=== PATIENT | male | born 1970 | race Caucasian/White ===

== ENCOUNTER 2016-08-15 16:41 | Emergency (ER) | payer SELFPAY ==
[~2016-08-15] VITALS: Ht 180.3 cm; Wt 68.0 kg
[2016-08-15 16:50] VITALS: BP 148/98; PULSE 87; RESP 16; TEMP 98.8; O2SAT 100
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
[2016-08-15] MEDS ORDERED: ONDANSETRON ODT 4 MG TAB PO ONE (17:00)
[2016-08-15] MEDS ORDERED: MORPHINE SULFATE 8 MG/ML INJ IM ONE (17:00)
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
--- NOTE | 2016-08-15 18:06 | RADHPO ---
EXAM DATE/TIME: 08/15/2016 17:33 [facility] COMPARISON: No previous studies available for comparison. INDICATIONS : Fall, neck pain. RADIATION DOSE: 26.61 CTDIvol (mGy) MEDICAL HISTORY : None SURGICAL HISTORY : None. ENCOUNTER: Initial ACUITY: 1 day PAIN SCALE: 5/10 LOCATION: neck TECHNIQUE: Volumetric scanning of the cervical spine was performed. Multiplanar reconstructions in the sagittal, coronal and oblique axial planes were performed. Using automated exposure control and adjustment o f the mA and/or kV according to patient size, radiation dose was kept as low as reasonably achievable to obtain optimal diagnostic quality images. FINDINGS: The soft tissues are normal. Bony structures are intact with fusion at C5-6 and no evidence of fractu re, compression, subluxation, or destructive change. Odontoid is normal relationship the arch C1. Sco liosis of cervical spine to the right is appreciated with multilevel degenerative disc disease and ch anges particularly C3-4 osteophyte disc complex central and to the right with mild lateral recess enc roachment and moderate osteophyte disc protrusion C4-5 with left neural foraminal encroachment. CONCLUSION: Degenerative findings as described above. No acute bony injury Gerry Mcleod MD on August 15, 2016 at 17:59 Board Certified Radiologist. This report was verified electronically.
[2016-08-15] MEDS ORDERED: PERC5TAB12 PO (18:14)
[2016-08-15] MEDS ORDERED: PROM25TA5 PO (18:14)
== END 2016-08-15 18:24 | disposition home or self-care (01) ==
LOC: PHED 16:41
DX: S00.03XA Contusion of scalp, initial encounter (principal); V86.39XA Unspecified occupant of other special all-terrain or other off-road motor vehicle injured in traffic accident, initial encounter; Y93.I9 Activity, other involving external motion; Y92.9 Unspecified place or not applicable
CPT/HCPCS: 70450; 72125; 96372; 99283; J2270

== ENCOUNTER 2017-09-01 11:21 | Emergency (ER) | payer MEDICAID, OTHER ==
[~2017-09-01] VITALS: Ht 180.3 cm; Wt 70.5 kg
[~2017-09-01 11:21] MED LIST: PERC5TAB12 PO; PROM25TA5 PO
[2017-09-01 11:27] VITALS: BP 137/91; PULSE 93; RESP 16; TEMP 98.3; O2SAT 98
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
[2017-09-01] MEDS ORDERED: SODIUM CHLORID 0.9% 500 ML INJ 500 ML IV ONE (13:15)
[2017-09-01] MEDS ORDERED: MORPHINE SULFATE 4 MG/ML INJ IV PUSH ONE (13:15)
[2017-09-01] MEDS ORDERED: ONDANSETRON HCL 4 MG/2 ML VIAL IV PUSH ONE (13:15)
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
[2017-09-01 13:39] LABS: BILIRUBIN, URINE NEG (NEG); BLOOD, URINE NEG (NEG); GLUCOSE,URINE NEG (NEG); KETONE, URINE NEG (NEG); MUCUS URINE FEW /lpf (OCC); NITRITE,URINE NEG (NEG); SQUAMOUS EPITHELIAL CELL URINE <1 /hpf (0-5); URINE COLOR DARK-YELLOW (YELLW/STRAW); URINE LEUKOCYTE ESTERASE NEG (NEG)
[2017-09-01 13:50] LABS: AUTOMATED NEUTROPHIL # 4.4 TH/MM3 (1.8-7.7); BASOPHIL % 0.5 % (0.0-2.0); EOSINOPHIL # 0.1 TH/MM3 (0-0.4); EOSINOPHIL % 1.9 % (0.0-4.0); HEMOGLOBIN 13.5 GM/DL (13.0-17.0); LYMPHOCYTE # 1.5 TH/MM3 (1.0-4.8); MEAN CELL VOLUME 91.7 FL (80.0-100.0); MEAN CORPUSCULAR HEMOGLOBIN 31.8 PG (27.0-34.0); MEAN CORPUSCULAR HGB CONC 34.7 % (32.0-36.0); MEAN PLATELET VOLUME 8.2 FL (7.0-11.0); MONO % 8.1 % (0.0-8.0); MONOCYTE # 0.5 TH/MM3 (0-0.9); NEUT % 66.5 % (16.0-70.0); PLATELET COUNT 309 TH/MM3 (150-450); RED BLOOD COUNT 4.25 MIL/MM3 (4.50-5.90); RED CELL DISTRIBUTION WIDTH 12.5 % (11.6-17.2); WHITE BLOOD COUNT 6.5 TH/MM3 (4.0-11.0)
[2017-09-01 14:04] LABS: BICARBONATE 31.4 MEQ/L (21.0-32.0); CALCIUM 9.3 MG/DL (8.5-10.1); CREATININE 0.79 MG/DL (0.60-1.30)
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
[2017-09-01] MEDS ORDERED: LORazepam 2 MG/ML VIAL ONE (14:11)
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
[2017-09-01] MEDS ORDERED: LORazepam 2 MG/ML VIAL IV PUSH ONE (14:15)
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
[2017-09-01] MEDS ORDERED: NORC5TAB PO (16:10)
[2017-09-01] MEDS ORDERED: MEDR4PAK PO (16:10)
[2017-09-01] MEDS ORDERED: CYCL10TA PO (16:10)
[2017-09-01] MEDS ORDERED: ACETAMINOPHEN/HYDROcodone 325 MG/5 MG TAB PO ONE (16:15)
[2017-09-01 16:48] VITALS: BP 144/94; PULSE 70; RESP 16; O2SAT 97
== END 2017-09-01 17:23 | disposition home or self-care (01) ==
LOC: NEPD 11:21
DX: S32.050A Wedge compression fracture of fifth lumbar vertebra, initial encounter for closed fracture (principal); V86.99XA Unspecified occupant of other special all-terrain or other off-road motor vehicle injured in nontraffic accident, initial encounter
CPT/HCPCS: 72100; 72125; 72128; 72131; 72141; 72146; 72148; 80048; 81001; 85025; 96361; 96374; 96375; 99284; J2060; J2270; J2405; J7040; L0627